=== PATIENT | male | born 1985 | race Caucasian/White ===

== ENCOUNTER 2020-08-20 11:49 | Emergency (ER) | payer OTHER ==
[~2020-08-20] VITALS: Ht 180.3 cm; Wt 102.3 kg
[2020-08-20 12:27] VITALS: TEMP 98.2
[2020-08-20 13:51] LABS: COLLECTION METHOD CLEAN CATCH
[2020-08-20 13:56] LABS: PH 7 (5-8); SQUAMOUS EPITHELIAL None Seen /hpf; URINE APPEARANCE Clear; URINE BACTERIA None Seen /hpf; URINE BILIRUBIN Negative (NEGATIVE); URINE BLOOD 2+ (NEGATIVE); URINE COLOR Yellow; URINE GLUCOSE Negative (NEGATIVE); URINE KETONE Negative (NEGATIVE); URINE LEUKOCYTE ESTERASE Negative (NEGATIVE); URINE NITRATE Negative (NEGATIVE); URINE PROTEIN(semi-quant) Negative (NEGATIVE); URINE RBC None Seen /hpf; URINE UROBILINOGEN Negative (NEGATIVE)
[2020-08-20] MEDS ORDERED: TRIAMCINOLONE A15 G3 TP (15:00)
[2020-08-20] MEDS ORDERED: DOXYCYCLINE 10100 MG PO (15:00)
[2020-08-20 15:04] VITALS: BP 124/78; PULSE 78
== END 2020-08-20 15:04 | disposition home or self-care (01) ==
LOC: COL.ER 11:49
PROVIDERS: Physician Assistant
DX: L27.1 Localized skin eruption due to drugs and medicaments taken internally (principal); T36.8X5A Adverse effect of other systemic antibiotics, initial encounter; N50.89 Other specified disorders of the male genital organs; Z87.891 Personal history of nicotine dependence